=== PATIENT | female | born 1995 ===

== ENCOUNTER 2016-05-01 00:48 | Emergency (ER) ==
[2016-05-01 01:09] VITALS: BP 131/76; TEMP 98.3; BMI 25.1
[2016-05-01] MEDS ORDERED: ZOFRAN ODT PO STA (01:12)
[2016-05-01] MEDS ORDERED: IMITREX SUBCUT STA (01:12)
[2016-05-01] MEDS ORDERED: TORADOL IM STA (01:12)
--- NOTE | 2016-05-01 01:17 | ED.PDOC ---
General ED Provider: Dr. AZEB ACOSTA Chief Complaint: Headache Stated Complaint: Started having floaters, blurry vision and headache approx. 2 1/2 hours ago. His pain is at forehead to the back of head and into the shoulder area. emesis x1 light and sound sensitive Time Seen by Physician: 01:11 Mode of Arrival: Walk-In Information Source: Patient Exam Limitations: No limitations Primary Care Provider: MATEUSZ MARTÍNEZ Nursing and Triage Documentation Reviewed and Agree: Yes Neurological Complaint Exam - Headache Complaint/Exam Onset: Gradual Duration: 21/2 hours ago Symptoms Are: Still present Timing: Constant Initial Severity: Severe Current Severity: Severe Location: Right, Frontal, Temporal, Parietal Character: Reports: Typical headache Aggravating: Reports: None Alleviating: Reports: None Associated Signs and Symptoms: Reports: Dizziness, Nausea, Neck pain Related History: Reports: Similar episode Related Surgical History: Reports: None SAH Risk Factors: Reports: None Meningitis Risk Factors: Reports: None SDH Risk Factors: Reports: None Normal Head CT Within Last 12 Months: No Fundoscopic Exam: Present: Normal Findings Papilledema Present: No Sinus Tenderness: Present: None TMJ Tenderness: Present: None Glascow Coma Scale (see protocol): 15 Meningeal Signs Positive: No Pain on Passive Flexion-Positive Kernig's: No ROM Limited In: No Limitiations Focal Weakness: Present: None Focal Sensory Loss: Present: None Gait: Normal Nystagmus Present: No Gag Reflex Present: No Review of Systems - Review Of Systems Constitutional: Reports: No symptoms Eyes: Reports: Photophobia Respiratory: Reports: No symptoms Cardiac: Reports: No symptoms GI: Reports: No symptoms : Reports: No symptoms Musculoskeletal: Reports: No symptoms Skin: Reports: No symptoms Neurological: Reports: No symptoms Endocrine: Reports: No symptoms Hematologic/Lymphatic: Reports: No symptoms All Other Systems: Reviewed and Negative Past Medical History - Past Medical History Endocrine: Reports: None Cardiovascular: Reports: None Respiratory: Reports: None Hematological: Reports: None Gastrointestinal: Reports: None Genitourinary: Reports: None Neuro/Psych: Reports: Migraine Musculoskeletal: Reports: None Cancer: Reports: None Last Menstrual Period: 1 1/2 YEARS AGO, HAS IUD - Surgical History General Surgical History: Reports: None - Family History Family History: Reports: None - Social History Smoking Status: Never smoker Hx Substance Use: No Alcohol Screening: None - Immunizations Tetanus Shot up to Date: Yes Physical Exam - Physical Exam Appearance: Ill-appearing, Well-nourished Pain Distress: Severe Eyes: SERVANDO, EOMI, Conjunctiva clear ENT: Ears normal, Nose normal, Oropharynx normal Neck: Supple Respiratory: Airway patent, Breath sounds clear, Breath sounds equal, Respirations nonlabored Cardiovascular: RRR, Pulses normal, No rub, No murmur GI/: Soft, Nontender, No masses, Bowel sounds normal, No Organomegaly Musculoskeletal: Normal strength, ROM intact, No edema, No calf tenderness Skin: Warm, Dry, Normal color Neurological: Sensation intact, Motor intact, Reflexes intact, Cranial nerves intact, Alert, Oriented Psychiatric: Anxious Re-Evaluation - Re-Evaluation Time of Re-Evaluation: :29 Status: Improved Pain Level: 2 Critical Care Note - Critical Care Note Total Time (mins): 0 Course - Course Orders, Labs, Meds: Orders Category Date Time Status Ketorolac Tromethamine [Toradol] MEDS 05/01/16 01:12 Discontinued 60 mg IM ONCE STA Ondansetron [Zofran Odt] MEDS 05/01/16 01:12 Discontinued 4 mg PO ONCE STA Sumatriptan Succinate [Imitrex] MEDS 05/01/16 01:12 Discontinued 6 mg SUBCUT ONCE STA Medications Discontinued Medications Generic Name Dose Route Start Last Admin Trade Name Nancy PRN Reason Stop Dose Admin Ketorolac Tromethamine 60 mg 05/01/16 01:12 05/01/16 01:33 Toradol IM 05/01/16 01:13 60 mg ONCE STA Administration Ondansetron HCl 4 mg 05/01/16 01:12 05/01/16 01:33 Zofran Odt PO 05/01/16 01:13 4 mg ONCE STA Administration Sumatriptan Succinate 6 mg 05/01/16 01:12 05/01/16 01:34 Imitrex SUBCUT 05/01/16 01:13 6 mg ONCE STA Administration Vital Signs: Temp Pulse Resp BP Pulse Ox 05/01/16 00:49 98.3 F 80 18 131/76 100 Departure - Departure Time of Disposition: 02:29 Disposition: HOME SELF-CARE Discharge Problem: Headache Instructions: Migraine Headache (ED) Condition: Fair Pt referred to PMD for follow-up: Yes Additional Instructions: push fluids Rest Follow up with PCP in 3 days take medication as prescribed. Prescriptions: Butalb/Acetaminophen/Caffeine [Fioricet] 1 each PO TID PRN #15 tablet PRN Reason: Headache Allergies/Adverse Reactions: Allergies No Known Drug Allergies Adverse Reaction (Verified 05/01/16 00:56) Home Medications: Ambulatory Orders Butalb/Acetaminophen/Caffeine [Fioricet] 1 each PO TID PRN #15 tablet 05/01/16 Disposition Discussed With: Patient, Family
== END 2016-05-01 02:54 | disposition home or self-care (01) ==
LOC: ED 00:48
DX: G43.909 Migraine, unspecified, not intractable, without status migrainosus (principal)
CPT/HCPCS: 96372; 99283